=== PATIENT | female | born 1975 | race Two or more races ===

== ENCOUNTER 2018-04-07 00:48 | Inpatient (IN) | payer SELFPAY ==
[2018-04-07] MEDS ORDERED: 0.9 % SODIUM CHLORIDE 10 ML DISP.SYRIN. IV ×2 (01:15→03:15)
[2018-04-07] MEDS ORDERED: fentaNYL PF VIAL 100 MCG/2 ML VIAL IV ×2 (01:15)
[2018-04-07] MEDS ORDERED: IV RINGERS,LACTATED 1000ML 1,000 ML IV (01:15)
[2018-04-07] MEDS ORDERED: ONDANSETRON PF 4 MG/2 ML VIAL. IV (01:15)
[2018-04-07] MEDS ORDERED: TERBUTALINE 1 MG/ML VIAL. SQ (01:15)
[2018-04-07] MEDS ORDERED: OXYTOCIN 30 UNIT/500 ML PREMIX 500 ML IV ×2 (01:15→03:15)
[2018-04-07] MEDS ORDERED: LIDOCAINE 1% PF 30 ML VIAL. INJ (01:30)
[2018-04-07] MEDS ORDERED: DINOPROSTONE 10 MG SUPP.VAG VG (01:30)
[2018-04-07] MEDS ORDERED: AMPICILLIN SODIUM 1 GM in IV NORMAL SALINE 50ML 50 ML IV (01:30)
[2018-04-07] MEDS: IV RINGERS,LACTATED 1000ML 1,000 ML IV ×3 (01:56→17:30)
[2018-04-07] MEDS: AMPICILLIN SODIUM 2 GM in IV NORMAL SALINE 100ML 100 ML IV (01:57)
[2018-04-07 02:06] LABS: ADD MAN DIFF? NO
[2018-04-07 02:09] LABS: BASO % 0 % (0-3); EOS # 0.1 x10^3/uL (0.0-0.7); EOS % 1 % (0-3); HEMATOCRIT 36.7 % (36.0-47.0); HEMOGLOBIN 12.6 g/dL (12.0-15.5); LYMPH # 1.4 x10^3/uL (1.0-4.8); LYMPH % 15 % (24-48); MEAN CORPUSCULAR HEMOGLOBIN 32 pg (25-35); MEAN CORPUSCULAR HGB CONC 34 g/dL (31-37); MEAN CORPUSCULAR VOLUME 93 fL (79-100); MONO # 0.8 x10^3/uL (0.0-1.1); MONO % 8 % (0-9); NEUT % 76 % (31-73); PLATELET COUNT 187 x10^3/uL (140-400); RED BLOOD COUNT 3.96 x10^6/uL (3.50-5.40); RED CELL DISTRIBUTION WIDTH 16.9 % (11.5-14.5); WHITE BLOOD COUNT 9.3 x10^3/uL (4.0-11.0)
[2018-04-07] MEDS ORDERED: ACETAMINOPHEN 325 MG TABLET. PO (03:15)
[2018-04-07] MEDS ORDERED: PHENYLEPH/MINERAL OIL/PETROLAT RECTAL OINTMENT 28GM TUBE. RC (03:15)
[2018-04-07] MEDS ORDERED: MMR per PROTOCOL. MC (03:15)
[2018-04-07] MEDS ORDERED: MAG HYDROX/ALUMINUM HYD/SIMETH 30 ML ORAL.SUSP PO (03:15)
[2018-04-07] MEDS ORDERED: SIMETHICONE 80 MG TAB.CHEW PO (03:15)
[2018-04-07] MEDS ORDERED: BENZOCAINE 20% TOPICAL AEROSOL SPRAY 57GM CAN. TP (03:15)
[2018-04-07] MEDS ORDERED: ZOLPIDEM 5 MG TABLET. PO (03:15)
[2018-04-07] MEDS ORDERED: diphenhydrAMINE HCL 25 MG CAPSULE PO (03:15)
[2018-04-07] MEDS ORDERED: MAGNESIUM HYDROXIDE 2,400 MG/30 ML ORAL.SUSP. PO (03:15)
[2018-04-07] MEDS ORDERED: HYDROCORTISONE 1% TOPICAL OINTMENT 30GM TUBE. TP (03:15)
[2018-04-07 03:41] LABS: HEPATITIS B SURFACE AG Nonreactive (Nonreactive)
[2018-04-07 04:09] LABS: GLUCOSE 100 mg/dL (70-99)
[2018-04-07 04:50] LABS: BILIRUBIN,URINE NEGATIVE (NEG); CLARITY,URINE CLEAR; COLOR,URINE YELLOW; GLUCOSE,URINE NEGATIVE (NEG); NITRITE,URINE NEGATIVE (NEG); PH,URINE 6.5; PROTEIN,URINE NEGATIVE (NEG-TRACE); UROBILINOGEN,URINE 0.2 mg/dL (0.2 mg/dL)
[2018-04-07] MEDS: IBUPROFEN 800 MG TABLET. PO ×2 (04:56→15:50)
[2018-04-07] MEDS: OXYTOCIN 30 UNIT/500 ML PREMIX 500 ML IV (04:56)
[2018-04-07 04:57] LABS: BARBITURATES NEG (NEG); BENZODIAZEPINES NEG (NEG); CANNABINOIDS NEG (NEG); COCAINE NEG (NEG); METHADONE NEG (NEG); OPIATES NEG (NEG); PHENCYCLIDINE NEG (NEG)
[2018-04-07 04:59] LABS: BACTERIA,URINE FEW /HPF (0-FEW); RBC,URINE OCC /HPF (0-2); SQUAMOUS EPITHELIAL CELL,UR FEW /LPF
[2018-04-07 05:00] LABS: AMPHETAMINE/METHAMPHETAMINE NEG (NEG); ETHANOL, URINE NEG (NEG)
[2018-04-07] MEDS ORDERED: AMPICILLIN SODIUM IV Push 1 GM VIAL. IVP (05:30)
[2018-04-07] MEDS: DOCUSATE SODIUM 100 MG CAPSULE. PO (15:50)
[2018-04-08] MEDS: IV RINGERS,LACTATED 1000ML 1,000 ML IV ×3 (01:30→17:30)
[2018-04-08] MEDS: IBUPROFEN 800 MG TABLET. PO (04:47)
[2018-04-08 04:49] LABS: ADD MAN DIFF? NO
[2018-04-08 05:02] LABS: BASO % 1 % (0-3); EOS # 0.2 x10^3/uL (0.0-0.7); EOS % 2 % (0-3); HEMATOCRIT 33.7 % (36.0-47.0); HEMOGLOBIN 11.9 g/dL (12.0-15.5); LYMPH % 24 % (24-48); MEAN CORPUSCULAR HEMOGLOBIN 33 pg (25-35); MEAN CORPUSCULAR HGB CONC 35 g/dL (31-37); MEAN CORPUSCULAR VOLUME 93 fL (79-100); MONO # 0.8 x10^3/uL (0.0-1.1); MONO % 9 % (0-9); NEUT # 5.4 x10^3uL (1.8-7.7); NEUT % 65 % (31-73); PLATELET COUNT 177 x10^3/uL (140-400); RED BLOOD COUNT 3.63 x10^6/uL (3.50-5.40); RED CELL DISTRIBUTION WIDTH 17.9 % (11.5-14.5); WHITE BLOOD COUNT 8.3 x10^3/uL (4.0-11.0)
[2018-04-08] MEDS: FERROUS SULFATE 325 MG TABLET. PO ×2 (08:00→17:00)
[2018-04-08] MEDS: oxyCODONE/APAP 5/325 1 TAB TABLET PO (21:21)
[2018-04-09] MEDS: IV RINGERS,LACTATED 1000ML 1,000 ML IV (01:30)
[2018-04-09] MEDS: DOCUSATE SODIUM 100 MG CAPSULE. PO (08:49)
[2018-04-09] MEDS: IBUPROFEN 800 MG TABLET. PO (08:49)
== END 2018-04-09 15:51 | disposition home or self-care (01) | DRG 775 ==
LOC: 3 SO LND 00:48 → 3 NORTH 05:10
PROC: 10E0XZZ Delivery of Products of Conception, External Approach (ICD-10-PCS; principal; 2018-04-07)
DX: O69.81X0 Labor and delivery complicated by cord around neck, without compression, not applicable or unspecified (principal); Z3A.38 38 weeks gestation of pregnancy; Z37.0 Single live birth
CPT/HCPCS: 36415; 80307; 81001; 82947; 85025; 86592; 86850; 86900; 86901; 87340; J0290; J2590; J7120